=== PATIENT | male | born 1995 | race Caucasian/White ===

== ENCOUNTER 2019-03-24 12:12 | Outpatient (CLI) | payer OTHER ==
--- NOTE | 2019-03-25 16:36 | MRI Report ---
Reason: PAIN IN LEFT KNEE Procedure Date: 03/24/2019 Accession Number: [id number] / [id number] Procedure: MRI - Knee LT W/O CPT Code: FULL RESULT: EXAM: LEFT KNEE MRI WITHOUT CONTRAST EXAM DATE: 03/24/2019 01:08 PM. CLINICAL HISTORY: PAIN IN LEFT KNEE. COMPARISON: None. TECHNIQUE: Multiplanar, multisequence T1-weighted and fluid-sensitive sequences of the knee without contrast. Other: None. FINDINGS: Bones: No fractures. No osseous lesions. Mild irregularity of the subchondral bone plate at the central weightbearing lateral femoral condyle, with a full-thickness delaminating cartilage fissure extending over an area measuring 0.8 x 0.5 cm. There is underlying subchondral marrow edema. Marrow signal is otherwise normal. Articular Cartilage: As described above, there is a 0.8 x 0.5 cm full-thickness delaminating cartilage fissure at the central weightbearing lateral femoral condyle with underlying irregularity of the subchondral bone plate and subchondral marrow edema. Otherwise intact articular cartilage at the knee. Medial Meniscus: The medial meniscus is intact. Lateral Meniscus: The lateral meniscus is intact. Cruciate Ligaments: The anterior and posterior cruciate ligaments are intact. Collateral Ligaments: The medial collateral and lateral collateral ligamentous structures are intact. Tendons: The quadriceps, patellar, semimembranosus, and popliteus tendons are unremarkable. Musculature: No edema or fatty atrophy. Other: No effusion. Small amount of fluid projects between the medial head gastrocnemius and semimembranosus tendons at the posteromedial knee. No loose bodies. The medial and lateral retinacula are intact. There is edema at the superolateral aspect of Hoffa's fat pad.. IMPRESSION: 1. Full-thickness delaminating cartilage fissure at the weightbearing lateral femoral condyle extending over an area measuring 0.5 x 0.8 cm, with underlying irregularity of the subchondral bone plate and subchondral marrow edema. 2. Mild edema at the superolateral aspect of Hoffa's fat pad suggest fat pad impingement in the setting of patellar tendon-lateral femoral condyle friction syndrome. 3. Normal menisci. 4. Normal cruciate and collateral ligaments. [facility]
== END 2019-03-24 12:13 | disposition home or self-care (01) ==
LOC: DI 12:12
PROVIDERS: ATTEND Anesthesiology Pain Medicine
DX: M23.92 Unspecified internal derangement of left knee (principal); R60.0 Localized edema